=== PATIENT | female | born 1970 | race Caucasian/White ===

== ENCOUNTER → 2020-07-13 13:56 | Outpatient (CLI) | payer MEDICAID, SELFPAY ==
--- NOTE | 2020-07-13 14:15 | BRBX_PTH ---
PATIENT: RONI JOHNSTON LOC: [facility] U#:[id number] AGE/SX: 54/F ROOM: RE07/13/[address]: Dr. Aubrie Ibrahim MD : 1970 BED: DIS: SPEC #: [id number] RECD: 07/13/20 14:54 STATUS: FIORELLA REQ #: [id number] JAXON: 07/13/20 14:[address]: Aubrie Ibrahim DEPT: SURGICAL PATHOLOGY RECD BY: Caitlyn Ma ENTERED: 07/14/20 09:48 SP TYPE: BREAST BX SKYE DR: Evelio Bailey, DIRECTOR OF IN SERVICE EDUCATION-C Tissues: Left breast, NOS Procedures: Surgery Specimen Level IV HEADER OPERATION: Left breast stereotactic biopsy PRE-OP DIAGNOSIS: Left breast calcifications 1 o?clock anterior depth TISSUE SUBMITTED: Left breast core tissue ISCHEMIC TIME: 1 minute FIXATION TIME: 30.5 hours MICROSCOPIC DIAGNOSIS Left breast, stereotactic biopsy: Densely collagenized stroma. Dystrophic clustered microcalcifications. Mild duct ectasia. No evidence of malignancy. AM:sanjuana 07/15/2020 MICROSCOPIC DESCRIPTION Slides are reviewed. GROSS DESCRIPTION Received in fixative is one container labeled with the patient name and designated left breast. The specimen consists of multiple elongated fragments of samaniego-yellow fibroadipose tissue that in aggregate measure 7.5 x 3 x 0.3 cm. The entire specimen is submitted in three cassettes. / SJ:sanjuana 07/14/20 TC:5 CPT: 98830
--- NOTE | 2020-07-13 16:39 | OP.PCM_ITS ---
Report of Operation Date of Procedure: 07/13/20 Pre-Operative Diagnosis: abnormal calcifications on left breast mammograms Post-Operative Diagnosis: same Surgery/Procedure Performed:: left stereotactic breast biopsy Description of Surgical Findings:: abnormal calcifications on left breast mammograms Surgeon: Aubrie Ibrahim Type of Anesthesia: Local (1% xylocaine) Specimen's removed: left breast tissue Estimated Blood Loss (mL): minimal Description of Procedure: After informed consent was given, the patient was brought into the Breast Biopsy suite. Appropriate time out protocol was followed. The patient was placed in the prone position on the stereotactic biopsy table. The patient?s left breast was then placed in the opening at the head of the biopsy table. A admitting supervisor compression mammogram was then obtained in the CC view. The suspicious radiological lesion was thus identified. Stereo pictures of the lesion were then taken for XYZ coordinates. The Mammotome biopsy stylus was then positioned where it would be entering into the patient?s breast. The skin at this site was then cleansed with a surgical skin preparation. The skin and subcutaneous tissues at this site were then infiltrated with 1% xylocaine. A small skin incision was made with an 11 blade scalpel. The biopsy stylus was then positioned into the patient?s breast at the proper coordinates of depth. Using the Mammotome vacuum-assist device, several core samples of breast tissue were obtained. A specimen mammogram was the obtained. It revealed that the abnormal calcifications were within the specimen. I reviewed this personally and concluded that the tissue sampling was adequate. A hemostatic marker clip was then placed into the biopsy cavity and a admitting supervisor film revealed that it was properly deployed. The patient was then placed in the supine position and pressure was applied to the breast until no active bleeding was noted. A nylon suture was placed to reapproximate the skin. A unilateral mammogram in the CC and MLO view were then taken which revealed that the marker clip was in the same area as the previous suspicious lesion. The patient tolerated the procedure well and was discharged from the Breast Biopsy suite in good condition. Complications none noted
== END ==
PROVIDERS: PCP Nurse Practitioner Family; Referring Provider Surgery; Visit Provider Surgery
DX: N60.42 Mammary duct ectasia of left breast (principal); F32.9 Major depressive disorder, single episode, unspecified; Z79.899 Other long term (current) drug therapy; F17.210 Nicotine dependence, cigarettes, uncomplicated
CPT/HCPCS: 19081; 88305; J7050; A4648

== ENCOUNTER → 2021-02-22 15:22 | Outpatient (CLI) | payer MEDICAID, SELFPAY | PROVIDERS: PCP Nurse Practitioner Family; Referring Provider Physician Assistant Surgical; Visit Provider Physician Assistant Surgical | DX: Z11.52 Encounter for screening for COVID-19 (principal) | CPT/HCPCS: 87635; U0005; U0003 ==

== ENCOUNTER 2021-04-17 15:14 | Emergency (ER) | payer MEDICAID, SELFPAY ==
[2021-04-17 15:15] VITALS: BP 117/84; PULSE 92; RESP 16; TEMP 36.3; O2SAT 98; BMI 20.6
--- NOTE | 2021-04-17 15:16 | EKG12_ITS ---
Test Reason : MEDICAL CLEARANCE Blood Pressure : / mmHG Vent. Rate : 074 BPM Atrial Rate : 074 BPM P-R Int : 142 ms QRS Dur : 066 ms QT Int : 380 ms P-R-T Axes : 068 032 043 degrees QTc Int : 421 ms Normal sinus rhythm Low voltage QRS (Limb Leads) Confirmed by ROBINSON BUTT, KYLIE ([id number]), publishing editor LITTLE VELASQUEZ ([id number]) on 04/20/2021 12:56:15 PM Referred By: KRIS Confirmed By:KYLIE BOWERS MD
[2021-04-17 15:54] LABS: Absolute Lymphocyte Count 2.39 X10^3/uL (0.83-4.51); Absolute Neutrophil Count 5.2 X10^3/uL (2.0-7.7); Basophil# 0.02 X10^3/uL; Basophil% 0.2 % (0-1); Eosinophil# 0.06 X10^3/uL; Eosinophils% 0.7 % (0-5); Hematocrit 41.5 % (37-47); Hemoglobin 14.8 g/dL (12.0-15.0); Lymphocyte # 2.39 X10^3/ul (0.83-4.51); Lymphocyte % 28.6 % (19-41); Mean Corp Hgb Conc 35.7 g/dL (32-36); Mean Corpuscular Hgb 35.9 pg (27.0-32.0); Mean Corpuscular Volume 100.7 fL (81-99); Mean Platelet Vol. 9.8 fl (6.2-12.0); Monocyte# 0.69 X10^3/uL; Monocyte% 8.2 % (0-10); NRBC Flagged by Analyzer 0 % (0-5); Neutrophil # 5.19 X10^3/uL (2.7-7.7); Neutrophil % 62.1 % (47-70); Platelet Count 268 K/mm3 (150-450); RBC Distribution Width CV 12.2 % (11.6-14.6); RBC Distribution Width SD 45.7 fl (35.1-43.9); Red Blood Count 4.12 M/mm3 (4.2-5.4); White Blood Count 8.4 K/mm3 (4.4-11.0)
[2021-04-17 16:09] LABS: Anion Gap 6 (5-15); BUN 6 mg/dL (7-18); BUN/Creat Ratio 10.2 RATIO (10-20); Calcium,Total 8.5 mg/dL (8.5-10.1); Chloride 106 mmol/L (98-107); Creatinine, Serum 0.59 mg/dL (0.55-1.02); EST Glomerular Filtration Rate 115 mL/min (>60); Est Glom Filt Rate - Afr Amer 139 mL/min (>60); Estimated Creatinine Clearance 100.08 ml/min; Glucose 93 mg/dL (74-106); Potassium 3.3 mmol/L (3.5-5.1); Sodium Level 136 mmol/L (136-145)
[2021-04-17 16:11] LABS: Internal QC Validated? YES +Cl - CLEAR BKGD; Pregnancy, Serum, hCG Quali. NEGATIVE Negative
--- NOTE | 2021-04-17 16:13 | ED.RN ---
Patient is unsure of why she is here. Patient states I was packing my stuff at my ex-husbands house when I hear someone banging on the door. They told me to go with them. Patient verbalizes that she has rights and we cannot keep her here against her will. Sheriff Gan has explained to patient that she is pinked slipped and cannot leave at this time.
[2021-04-17 16:14] LABS: Alcohol, Blood (Medical)-Serum < 3.0 mg/dL
[2021-04-17 16:23] LABS: Acetaminophen (Tylenol) Level < 2.0 ug/mL (10.0-30.0); Salicylate 5.8 mg/dL (2.8-20.0)
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
[2021-04-17 17:15] LABS: Amphetamine Urine VISTA NEGATIVE (<1000 ng/mL); Barbiturate Urine VISTA NEGATIVE (< 200 ng/mL); Benzodiazepine Urine VISTA POSITIVE (< 200 ng/mL); Cocaine Urine VISTA NEGATIVE (< 300 ng/mL); Ecstacy Urine VISTA NEGATIVE (< 500 ng/mL); Methadone Urine VISTA NEGATIVE (< 300 ng/mL); PCP Urine VISTA NEGATIVE (< 25 ng/mL); THC Urine VISTA POSITIVE (< 50 ng/mL); Vista UDS pH Range 5
--- NOTE | 2021-04-17 17:36 | ED.RN ---
PER ZAHEER WITH CRISIS; SHANNAN - ALSO WITH CRISIS HAS ALREADY EVALUATED THE PT FOR PLACEMENT. THIS CONSTRUCTION ENGINEERING MANAGER FAXED PT INFORMATION TO CRISIS
[2021-04-17] MEDS: ALPRAZolam 0.5 MG Tablet 1 MG PO (21:00)
[2021-04-17 21:04] VITALS: BP 118/69; PULSE 92; RESP 18; O2SAT 98
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
[2021-04-17] MEDS: Ziprasidone IM 20 MG/ML VIAL IM (23:26)
[2021-04-18] VITALS (12 sets, daily range): BP systolic 101–157; BP diastolic 68–95; PULSE 65–87; RESP 14–18; TEMP 36.7; O2SAT 93–99
--- NOTE | 2021-04-18 01:02 | ED.RN ---
[id number] pt is verbally abusive to the staff and threatening to harm staff. pt is escalating and unable to de-escalate the situation without her calling staff bitches,fuckers and other vile cuss words. made aware.
[2021-04-18] MEDS: ALPRAZolam 0.5 MG Tablet 1 MG PO ×2 (07:10→13:55)
[2021-04-18] MEDS: Escitalopram Oxalate 10 MG Tablet PO (08:33)
[2021-04-18] MEDS: Nystatin Powder 15gm Bottle 1 APPLIC TOPICAL (09:03)
[2021-04-18] MEDS: Loperamide 2 MG Capsule 4 MG PO (09:03)
--- NOTE | 2021-04-18 09:21 | ED.RN ---
THIS RN SPOKE WITH MARGA FROM CRISIS REGARDING PT. MARGA WAS INFORMED THAT PT WOULD LIKE TO SPEAK TO SOMEONE FROM CRISIS. MARGA IS FAXING OVER ASSMNT FROM YESTERDAY AND MAKING SOME PHONE CALLS TO GATHER FURTHER INFORMATION, THEN CALLING BACK TO SPEAK WITH PATIENT.
--- NOTE | 2021-04-18 10:58 | ED.RN ---
THIS RN SPOKE WITH MARGA FROM CRISIS. MARGA STATES THAT [facility] STATES THEY DO NOT HAVE ANY BEDS OPEN AT THE MOMENT. MARGA STATES SHE IS WORKING ON FAXING HER REPORT ELSEWHERE AND WILL CALL THIS RN BACK.
--- NOTE | 2021-04-18 12:30 | CM.ED ---
Social Work This psychotherapist social worker checking in with patient and family. Dr. Negro is now at bedside and assisting with answering medical questions. Dr. Alvarez also to ED to answer patient family questions. After speaking with medical team. Patient and patient family continue to be agreeable to hospice services. Patient son, Gregorio now present. Multiple questions, medical team able to answer family/patient questions. [facility] reports that a staff member will come to assess patient around 14:00 today. Patient and medical team updated. Will continue to follow. Kvng Mckay MSW, VINAY
--- NOTE | 2021-04-18 13:12 | NURSING ---
CALLED [facility], ETA IS 60 MIN
--- NOTE | 2021-04-18 13:59 | ED.RN ---
REPORT CALLED TO ANGELITA AT [facility]. NO FURTHER QUESTIONS
--- NOTE | 2021-04-18 14:15 | CM.ED ---
Social Work Family met with hospice and have signed papers. Patient to be admitted to inpatient unit at [facility] per Hospice insurance service representative, Alida. Medical team updated. [employer] to set up transportation. Support provided to family. Kvng Mckay MSW, VINAY
--- NOTE | 2021-04-18 14:49 | ED.RN ---
PT LEFT VIA EMS TO FACILITY. THIS RN CHECKED TO MAKE SURE HER WIRELESS PHONE IRON WORKER APPRENTICE AND COAT WERE WITH HER PERSONAL BELONGINGS AND SHOWED PATIENT. PT THEN LEFT WITH EMS
--- NOTE | 2021-04-18 15:10 | NURSING ---
ETA IS 60 MIN
== END 2021-04-18 14:45 ==
PROVIDERS: Emergency Medicine; Emergency Provider Student in an Organized Health Care Education/Training Program; PCP Nurse Practitioner Family; Visit Provider Student in an Organized Health Care Education/Training Program
DX: F32.A Depression, unspecified (principal); F17.210 Nicotine dependence, cigarettes, uncomplicated
CPT/HCPCS: 80048; 80307; 80329; 82077; 84703; 85025; 87426; 93005; 96372; 99285; G0480; J3486